=== PATIENT | female | born 1930 | race Caucasian/White ===

== ENCOUNTER 2019-06-02 13:51 | Inpatient (IN) ==
[2019-06-02 14:09] VITALS: BMI 26.6
[2019-06-02 14:52] LABS: BILIRUBIN,URINE NEGATIVE (NEGATIVE); BLOOD/HEMOGLOBIN,URINE NEGATIVE (NEGATIVE); GLUCOSE, URINE NEGATIVE (NEGATIVE); KETONES,URINE NEGATIVE (NEGATIVE); LEUKOCYTE ESTERASE ,URINE 2+ (NEGATIVE); NITRITES,URINE NEGATIVE (NEGATIVE); PROTEIN,URINE 1+ (NEGATIVE); UROBILINOGEN,URINE NORMAL (NORMAL)
[2019-06-02 15:06] LABS: APPEARANCE,URINE CLEAR (CLEAR); COLOR,URINE YELLOW (YELLOW)
[2019-06-02 15:07] LABS: BACTERIA,URINE 2+ /HPF (NEGATIVE); RBC,URINE 0-2 /HPF (0-3); SQUAMOUS EPITHELIAL CELL,UR RARE /HPF (NEGATIVE)
--- NOTE | 2019-06-02 15:35 | ED.ABDFE ---
HPI Time Seen Time Seen by Provider: 06/02/19 15:34 PCP Primary Care Physician: KENDALL CORDERO Complaint Chief Complaint:: PT C/O RLQ PAIN,( RIPPING PAIN ) PT DENIES ANY PROBLEMS VOIDING Self Treatment fo Chief Complaint: PTS GRANDSON STATES " I BROUGHT HER SHE WAS ROLLING AROUND IN THE BED WITH ABD PAIN " PT WAS SEEN IN ER [place] AND DX WITH , UTI GIVEN PYRIDIUM AND , ABX PT C/O PAIN IS STILL PRESENT ,BR Source History Provided: Patient Mode of arrival Mode of Arrival: Wheelchair Timing Onset of Chief Complaint: 05/21/19 PMH PMH Past Medical History: Yes Past Medical History: Anxiety, Arthritis, Depression, Diabetes, GERD, Hypertension and Hypothyroidism Past Surgical History: Yes Surgical History: Ortho Surgery Past Surgical History Comment: KNEE, IVC FILTER Family History History of Family Medical Conditions: Yes Family Medical History: Coronary Artery Disease and Hypertension Social History Does patient currently use any type of tobacco product: No Have you used tobacco products in the last 12 months: No Type of Tobacco Use: None Does any household member use tobacco: No Alcohol Use: None Do you use any recreational Drugs:: No Lives With: Family Lives Where: Home infectious screening In the last 2 months have you had wt loss of >10#?: NO Have you had fever, night sweats or hemotysis?: No Have you traveled outside the country in the last 6 months?: No Isolation: Standard PE Vital Signs Vitals: Temperature 98.4 F Pulse Rate [Left Apical] 91 Pulse Rate 85 Respiratory Rate 19 Blood Pressure [Right Arm] 179/106 Blood Pressure 177/77 O2 Sat by Pulse Oximetry 99 ROR Labs Reviewed Result Diagrams: 06/02/19 16:23 06/02/19 16:23 Laboratory: WBC 5.1 X10^3/uL (3.6-10.0) 06/02/19 16:23 RBC 3.71 X10^6/uL (3.5-5.4) 06/02/19 16:23 Hgb 11.9 g/dL (12.0-16.0) L 06/02/19 16:23 Hct 35.8 % (36.0-47.0) L 06/02/19 16:23 MCV 96.5 fL (80.0-100.0) 06/02/19 16:23 MCH 31.9 pg (27.0-34.0) 06/02/19 16:23 MCHC 33.1 g/dL (33.0-35.0) 06/02/19 16:23 RDW 13.3 % (11.6-16.5) 06/02/19 16:23 Plt Count 210 X10^3/uL (150.0-450.0) 06/02/19 16:23 MPV 9.7 fL (7.4-11.0) 06/02/19 16:23 Neut % (Auto) 59.7 % (42.0-75.0) 06/02/19 16:23 Lymph % (Auto) 30.2 % (21.0-51.0) 06/02/19 16:23 [place] % (Auto) 8.0 % (0.0-13.0) 06/02/19 16:23 Eos % (Auto) 1.7 % (0.9-2.9) 06/02/19 16:23 Baso % (Auto) 0.4 % (0.2-1.0) 06/02/19 16:23 Neut # (Auto) 3.0 x10^3/uL (2.2-4.8) 06/02/19 16:23 Lymph # (Auto) 1.5 X10^3/uL (1.3-2.9) 06/02/19 16:23 [place] # (Auto) 0.4 x10^3/uL (0.3-0.8) 06/02/19 16:23 Eos # (Auto) 0.1 x10^3/uL (0.0-0.2) 06/02/19 16:23 Baso # (Auto) 0.0 X10^3/uL (0.0-0.1) 06/02/19 16:23 Absolute Nucleated RBC 0.1 /100WBC 06/02/19 16:23 Sodium 144 mmol/L (136-145) 06/02/19 16:23 Corrected Sodium 147 mmol/L (136-145) H 06/02/19 16:23 Potassium 3.7 mmol/L (3.5-5.1) 06/02/19 16:23 Chloride 104 mmol/L (98-107) 06/02/19 16:23 Carbon Dioxide 29.8 mmol/L (21-32) 06/02/19 16:23 BUN 47 mg/dL (7-18) H 06/02/19 16:23 Creatinine 1.88 mg/dL (0.55-1.02) H 06/02/19 16:23 Est GFR (MDRD) Af Amer 32 (>60) L 06/02/19 16:23 Est GFR (MDRD) Non-Af 27 (>60) L 06/02/19 16:23 Glucose 209 mg/dL (65-99) H 06/02/19 16:23 Calcium 8.9 mg/dL (8.5-10.1) 06/02/19 16:23 Corrected Calcium TNP 06/02/19 16:23 Total Bilirubin 0.50 mg/dL (0.2-1.0) 06/02/19 16:23 AST 27 Units/L (15-37) 06/02/19 16:23 ALT 16 Units/L (12-78) 06/02/19 16:23 Alkaline Phosphatase 87 Units/L (46-116) 06/02/19 16:23 Total Protein 7.1 g/dL (6.4-8.2) 06/02/19 16:23 Albumin 3.6 g/dL (3.4-5.0) 06/02/19 16:23 Globulin 3.5 g/dL (2.5-4.5) 06/02/19 16:23 Albumin/Globulin Ratio 1.0 Ratio (1.1-2.1) L 06/02/19 16:23 Amylase 44 Units/L (25-115) 06/02/19 16:23 Lipase 203 Units/L (73-393) 06/02/19 16:23 Specimen Type Clean catch urine 06/02/19 14:30 Urine Color Yellow (YELLOW) 06/02/19 14:30 Urine Appearance Clear (CLEAR) 06/02/19 14:30 Urine pH 6.0 (5.0 - 8.0) 06/02/19 14:30 Ur Specific [place] 1.010 (1.000-1.030) 06/02/19 14:30 Urine Protein 1+ (NEGATIVE) 06/02/19 14:30 Urine Glucose (UA) Negative (NEGATIVE) 06/02/19 14:30 Urine Ketones Negative (NEGATIVE) 06/02/19 14:30 Urine Occult Blood Negative (NEGATIVE) 06/02/19 14:30 Urine Nitrite Negative (NEGATIVE) 06/02/19 14:30 Urine Bilirubin Negative (NEGATIVE) 06/02/19 14:30 Urine Urobilinogen Normal (NORMAL) 06/02/19 14:30 Ur Leukocyte Esterase 2+ (NEGATIVE) 06/02/19 14:30 Urine RBC 0-2 /HPF (0-3) 06/02/19 14:30 Urine WBC 3-5 /HPF (0-5) 06/02/19 14:30 Ur Squamous Epith Cells Rare /HPF (NEGATIVE) 06/02/19 14:30 Urine Bacteria 2+ /HPF (NEGATIVE) 06/02/19 14:30 Ur Culture Indicated? Yes/culture set up 06/02/19 14:30 Opioid Opioid Risk Tool Age ([place] box if 16-45): No History of Preadolescent Sexual Abuse: No Total: 0 Total Score Risk Category: Low Risk Copyright: Yuriy ENAMORADO predicting aberrant behaviors
[2019-06-02 16:48] LABS: BASOPHILS % (AUTO) 0.4 % (0.2-1.0); EOSINOPHILS # (AUTO) 0.1 x10^3/uL (0.0-0.2); EOSINOPHILS % (AUTO) 1.7 % (0.9-2.9); HEMATOCRIT 35.8 % (36.0-47.0); HEMOGLOBIN 11.9 g/dL (12.0-16.0); LYMPHOCYTES # (AUTO) 1.5 X10^3/uL (1.3-2.9); LYMPHOCYTES % (AUTO) 30.2 % (21.0-51.0); MEAN CORPUSCULAR HEMOGLOBIN 31.9 pg (27.0-34.0); MEAN CORPUSCULAR HGB CONC 33.1 g/dL (33.0-35.0); MEAN CORPUSCULAR VOLUME 96.5 fL (80.0-100.0); MEAN PLATELET VOLUME 9.7 fL (7.4-11.0); MONOCYTES # (AUTO) 0.4 x10^3/uL (0.3-0.8); NEUTROPHILS % (AUTO) 59.7 % (42.0-75.0); PLATELET COUNT 210 X10^3/uL (150.0-450.0); RED BLOOD COUNT 3.71 X10^6/uL (3.5-5.4); RED CELL DISTRIBUTION WIDTH 13.3 % (11.6-16.5); WHITE BLOOD COUNT 5.1 X10^3/uL (3.6-10.0)
[2019-06-02 17:07] LABS: ALANINE AMINOTRANSFERASE 16 Units/L (12-78); ALBUMIN 3.6 g/dL (3.4-5.0); ALKALINE PHOSPHATASE 87 Units/L (46-116); AMYLASE 44 Units/L (25-115); ASPARTATE AMINO TRANSFERASE 27 Units/L (15-37); BLOOD UREA NITROGEN 47 mg/dL (7-18); CALCIUM 8.9 mg/dL (8.5-10.1); CARBON DIOXIDE 29.8 mmol/L (21-32); CHLORIDE 104 mmol/L (98-107); COR NA(FOR HYPERGLY) 147 mmol/L (136-145); CREATININE 1.88 mg/dL (0.55-1.02); LIPASE 203 Units/L (73-393); SODIUM 144 mmol/L (136-145); TOTAL PROTEIN 7.1 g/dL (6.4-8.2); eGFR NON BLACK RACES 27 (>60)
--- NOTE | 2019-06-02 19:07 | CT ---
History: Pain Exam: CT abdomen and pelvis without contrast Comparison: None Technique: Axial spiral images were obtained from lung bases through the pubic symphysis after oral contrast only. Automated dose control was utilized. Findings: There is some hazy ground-glass opacity along the lingula inferiorly with mild linear densities along the lung bases posterior laterally. The liver and spleen are normal size and density. The gallbladder is normal size with calcifications layering dependently near the neck region . There is no wall thickening or pericholecystic fluid. The bile ducts are normal. The pancreas is normal size with some punctate calcifications scattered in the pancreas with no active inflammation or mass seen. The adrenals are normal . There is moderate cortical thinning and scarring throughout both kidneys with no hydronephrosis or renal stones . There is 1 cm cyst along the lateral aspect of the right kidney and a 1.3 cm hyperdense cystic mass along the mid polar region on the left posteriorly . The bladder is unremarkable. The uterus has been removed with no adnexal mass or free fluid . There are numerous diverticula throughout the sigmoid colon with no pericolonic inflammation . There is a IVC filter in place with the tip below the renal veins . No adenopathy or ascites is seen . The mesentery is unremarkable . The appendix is not well visualized with no pericecal inflammation . There are moderate degenerative changes seen in the spine with associated moderate scoliosis. IMPRESSION: No acute abnormality seen. Cholelithiasis. Mild chronic calcific pancreatitis with no active inflammation or mass, recommend clinical follow-up . Moderate cortical thinning and scarring throughout both kidneys with no hydronephrosis or renal stones . 1.3 cm hyperdense mass left kidney which probably represents a hemorrhagic cyst , recommend ultrasound follow-up . IVC filter in good position. Moderate diverticulosis of the sigmoid colon with no pericolonic inflammation. Status post hysterectomy with no pelvic mass. Mild discoid atelectasis or scarring along the lung bases posteriorly with a questionable early lingular infiltrate or scarring. Reported By:
[2019-06-02] MEDS ORDERED: ZOFRAN INJ 4 MG VIAL IVP PRN (21:49)
[2019-06-02] MEDS ORDERED: DUONEB 0.5 MG/3 MG NEB PRN (22:49)
[2019-06-02] MEDS ORDERED: SALINE 3% 15 ML NEB TX NEB ONE (23:05)
[2019-06-02] MEDS: MORPHINE SULFATE INJ 2 MG INJ IVP PRN (23:15)
[2019-06-02] MEDS: VIBRAMYCIN 100 MG in D5W 250 ML IV 250 ML IV SCH (23:15)
[2019-06-02] MEDS: NS 1000 ML 1,000 ML IV SCH (23:15)
[2019-06-03] MEDS: FLAGYL IV PREMIX 500 MG BAG 500 MG/100 ML BAG IV SCH ×4 (01:15→17:52)
[2019-06-03 05:08] LABS: BASOPHILS # (AUTO) 0.1 X10^3/uL (0.0-0.1); BASOPHILS % (AUTO) 1.3 % (0.2-1.0); EOSINOPHILS # (AUTO) 0.1 x10^3/uL (0.0-0.2); EOSINOPHILS % (AUTO) 2.1 % (0.9-2.9); HEMATOCRIT 30.4 % (36.0-47.0); HEMOGLOBIN 10.2 g/dL (12.0-16.0); LYMPHOCYTES # (AUTO) 1.6 X10^3/uL (1.3-2.9); LYMPHOCYTES % (AUTO) 36.9 % (21.0-51.0); MEAN CORPUSCULAR HEMOGLOBIN 32.4 pg (27.0-34.0); MEAN CORPUSCULAR HGB CONC 33.6 g/dL (33.0-35.0); MEAN CORPUSCULAR VOLUME 96.3 fL (80.0-100.0); MEAN PLATELET VOLUME 9.6 fL (7.4-11.0); MONOCYTES # (AUTO) 0.4 x10^3/uL (0.3-0.8); MONOCYTES % (AUTO) 8.5 % (0.0-13.0); NEUTROPHILS # (AUTO) 2.3 x10^3/uL (2.2-4.8); NEUTROPHILS % (AUTO) 51.2 % (42.0-75.0); PLATELET COUNT 178 X10^3/uL (150.0-450.0); RED BLOOD COUNT 3.15 X10^6/uL (3.5-5.4); RED CELL DISTRIBUTION WIDTH 13.1 % (11.6-16.5); WHITE BLOOD COUNT 4.5 X10^3/uL (3.6-10.0)
[2019-06-03 05:26] LABS: ALBUMIN 2.9 g/dL (3.4-5.0); CALCIUM 8.1 mg/dL (8.5-10.1); CARBON DIOXIDE 28.1 mmol/L (21-32); CREATININE 1.79 mg/dL (0.55-1.02); TOTAL PROTEIN 5.8 g/dL (6.4-8.2)
[2019-06-03] MEDS: MORPHINE SULFATE INJ 2 MG INJ IVP PRN (06:28)
[2019-06-03] MEDS: VIBRAMYCIN 100 MG in D5W 250 ML IV 250 ML IV SCH (09:25)
[2019-06-03] MEDS: NS 1000 ML 1,000 ML IV SCH ×2 (09:40→18:29)
[2019-06-03] MEDS ORDERED: XANAX PO PRN (10:14)
[2019-06-03] MEDS ORDERED: POTASSIUM CHLORIDE LIQ 20 MEQ UDC PO ONE (10:16)
[2019-06-03] MEDS ORDERED: POTASSIUM CHLORIDE LIQ 20 MEQ UDC ONE (10:28)
--- NOTE | 2019-06-03 10:59 | US ---
HISTORY: Right lower quadrant pain, right upper quadrant Study: Right upper quadrant abdominal ultrasound Comparison: CT scan of the abdomen and pelvis done 06/02/2019 Technique: Multiple corbett scale, duplex and color flow Doppler images of the right upper quadrant were obtained. Findings: The liver is normal in echotexture and size. No focal intraparenchymal mass or intrahepatic biliary ductal dilatation can be observed. There are multiple stones present within the gallbladder. There is gallbladder wall thickening (0.62 cm). No evidence of pericholecystic fluid is seen. The common bile duct is unremarkable measuring 1.6 mm. Portal venous flow is hepatopetal.. The right kidney appears normal in size without focal parenchymal mass or nephrolithiasis. The right kidney measurers 10.23 cm in length. Cortical thickness is 1.52 cm. Resistive index is 0.73.. No hydronephrosis or perirenal fluid can be observed. There is decreased corticomedullary echo differentiation of the right kidney compatible with medical renal disease. Pancreas, abdominal aorta and IVC are normal. IMPRESSION: Multiple stones present within the gallbladder. There is mild gallbladder wall thickening but no pericholecystic fluid is seen. Decreased corticomedullary echo differentiation of the right kidney compatible with medical renal disease. Reported By:
[2019-06-03] MEDS ORDERED: XARELTO PO SCH (11:00)
[2019-06-03] MEDS ORDERED: SYNTHROID 50 mcg TAB PO SCH (11:00)
[2019-06-03] MEDS ORDERED: NEURONTIN CAP 300 MG PO SCH (11:00)
[2019-06-03] MEDS ORDERED: JANUVIA PO SCH (11:00)
[2019-06-03] MEDS ORDERED: NORVASC TAB 10 MG PO SCH (11:00)
--- NOTE | 2019-06-03 15:03 | RAD ---
HISTORY: Preop for cholecystectomy Study: Single-view chest, done portably Comparison: No priors Findings: Trachea is midline. Heart size is upper normal. There is atherosclerotic calcification and uncoiling of the aortic arch. Chronic appearing increased interstitial markings are present in the lung bases. No consolidation, CHF, pleural fluid or pneumothorax is seen. There is degenerative change present involving both shoulders. Findings likely indicate rotator cuff insufficiency on the right. IMPRESSION: Multiple chronic changes. No acute cardiopulmonary disease. Reported By:
[2019-06-03 16:22] VITALS: BP 110/67
[2019-06-03] MEDS ORDERED: SNACK - Diabetic Appropriate PO SCH (20:00)
== END 2019-06-03 19:30 | disposition home or self-care (01) | DRG 446 ==
LOC: ER 13:51 → MED/SURG 21:28
PROVIDERS: ADMIT Obstetrics & Gynecology Obstetrics; ATTEND Obstetrics & Gynecology Obstetrics
DX: R10.31 Right lower quadrant pain; K21.9 Gastro-esophageal reflux disease without esophagitis; K80.80 Other cholelithiasis without obstruction; F41.8 Other specified anxiety disorders; I10 Essential (primary) hypertension; R94.31 Abnormal electrocardiogram [ECG] [EKG]; E03.8 Other specified hypothyroidism; R10.11 Right upper quadrant pain; E11.65 Type 2 diabetes mellitus with hyperglycemia; Z79.899 Other long term (current) drug therapy
CPT/HCPCS: 36415; 71010; 71045; 74176; 76705; 80053; 81001; 82150; 83690; 83735; 84132; 85025; 87086; 93005; 93306; 94640; 94760; 96365; 97162; 97165; 99284; A4222; S0030; J2270; J3490; J7030; J7060